=== PATIENT | female | born 1945 | race Caucasian/White ===

== ENCOUNTER 2022-07-05 18:24 | Emergency (ER) | payer OTHER ==
[2022-07-05 18:59] VITALS: BP 179/103; PULSE 96; RESP 18; TEMP 99.2; BMI 17.1
== END 2022-07-05 19:29 | disposition home or self-care (01) ==
LOC: FER 18:24
DX: R05.1 Acute cough (principal); R09.81 Nasal congestion; Z20.822 Contact with and (suspected) exposure to COVID-19
CPT/HCPCS: 0241U-QW; 71046-TC-FY; 99285-25

== ENCOUNTER 2023-02-07 23:53 | Emergency (ER) | payer OTHER ==
[2023-02-08] VITALS: RESP 16; BMI 17.0
[2023-02-08] MEDS ORDERED: ONDANSETRON 4 MG/2 ML VIAL IVPB ONE (00:35)
[2023-02-08] MEDS ORDERED: FOLIC ACID INJECTION - 1 MG, THIAMINE HCL 100 MG, MULTIVIT INJECTION ADULT 10 ML in SOD... IVPB ONE (00:41)
[2023-02-08] MEDS ORDERED: ONDANSETRON 4 MG/2 ML VIAL ONE (00:47)
[2023-02-08] MEDS ORDERED: FOLIC ACID 5 MG/1 ML ONE (00:51)
[2023-02-08] MEDS ORDERED: THIAMINE HCL 200 MG/2 ML VIAL ONE (00:52)
[2023-02-08] MEDS ORDERED: MULTIVIT INJ. ADULT COMBO WITH VIT K 1 COMBO 10 ML VIAL IV ONE (00:52)
[2023-02-08 01:55] LABS: EPI CELLS 6 /uL (0-25.1); HYALINE CASTS 1 /uL (0-3.1); URINE APPEARANCE TURBID; URINE BACTERIA 32 /uL (0-1359); URINE BILIRUBIN NEGATIVE (NEGATIVE); URINE COLOR YELLOW; URINE GLUCOSE (UA) NEGATIVE (NEGATIVE); URINE KETONE 2+ (NEGATIVE); URINE LEUK ESTERASE NEGATIVE (NEGATIVE); URINE NITRITE NEGATIVE (NEGATIVE); URINE PROTEIN 1+ (NEGATIVE); URINE RBC 14 /uL (0-23.9); URINE UROBILINOGEN 0.2 mg/dL (0.2-1.0); URINE WBC 21 /uL (0-25.8)
[2023-02-08 02:04] LABS: BASO % 0.4 % (0-2.0); EOS % 0.3 % (0-4.5); HEMATOCRIT 36.2 % (32.4-45.2); HEMOGLOBIN 11.8 GM/dL (10.7-15.3); LYMPH % 9.9 % (8-40); MCH 26.9 pg (25.7-33.7); MCHC 32.6 g/dl (32.0-36.0); MEAN CELL VOLUME 82.5 fl (80-96); MEAN PLT VOLUME 8.3 fl (7.5-11.1); NEUT % 81.4 % (42.8-82.8); PLATELET COUNT 231 10^3/uL (134-434); RBC 4.39 M/mm3 (3.60-5.2); RDW 13.8 % (11.6-15.6); WHITE BLOOD COUNT 4.8 K/mm3 (4.0-10.0)
[2023-02-08 02:07] LABS: POTASSIUM 3.8 mmol/L (3.5-5.1)
[2023-02-08 02:09] LABS: ALBUMIN 3.6 g/dl (3.4-5.0); CALCIUM 8.3 mg/dL (8.5-10.1)
[2023-02-08 02:10] LABS: BLOOD UREA NITROGEN 15.4 mg/dL (7-18)
[2023-02-08 02:13] LABS: CREATININE 0.8 mg/dL (0.55-1.3)
[2023-02-08 02:14] LABS: BILIRUBIN,TOTAL 0.5 mg/dL (0.2-1); TOT PROT 7.4 g/dl (6.4-8.2)
[2023-02-08] MEDS ORDERED: ACETAMINOPHEN 1000 MG/100 ML BAG IVPB ONE (02:18)
[2023-02-08] MEDS ORDERED: ACETAMINOPHEN INJECTION 100 ML IVPB ONE (02:21)
[2023-02-08 02:39] VITALS: BP 177/97; PULSE 94; TEMP 99.9
[2023-02-08 05:13] LABS: URINE CRYSTALS NONE SEEN /hpf
== END 2023-02-08 03:11 | disposition home or self-care (01) ==
LOC: FER 23:53
PROC: 3E033GC Introduction of Other Therapeutic Substance into Peripheral Vein, Percutaneous Approach (ICD-10-PCS; principal; 2023-02-08)
PROC: 3E033GC Introduction of Other Therapeutic Substance into Peripheral Vein, Percutaneous Approach (ICD-10-PCS; 2023-02-08)
PROC: 3E033GC Introduction of Other Therapeutic Substance into Peripheral Vein, Percutaneous Approach (ICD-10-PCS; 2023-02-08)
PROC: 3E033GC Introduction of Other Therapeutic Substance into Peripheral Vein, Percutaneous Approach (ICD-10-PCS; 2023-02-08)
PROC: 3E033GC Introduction of Other Therapeutic Substance into Peripheral Vein, Percutaneous Approach (ICD-10-PCS; 2023-02-08)
PROC: 3E033GC Introduction of Other Therapeutic Substance into Peripheral Vein, Percutaneous Approach (ICD-10-PCS; 2023-02-08)
PROC: 3E033GC Introduction of Other Therapeutic Substance into Peripheral Vein, Percutaneous Approach (ICD-10-PCS; 2023-02-08)
PROC: 3E033GC Introduction of Other Therapeutic Substance into Peripheral Vein, Percutaneous Approach (ICD-10-PCS; 2023-02-08)
PROC: 3E033GC Introduction of Other Therapeutic Substance into Peripheral Vein, Percutaneous Approach (ICD-10-PCS; 2023-02-08)
PROC: 3E033NZ Introduction of Analgesics, Hypnotics, Sedatives into Peripheral Vein, Percutaneous Approach (ICD-10-PCS; 2023-02-08)
DX: R50.9 Fever, unspecified (principal); R53.81 Other malaise; J11.1 Influenza due to unidentified influenza virus with other respiratory manifestations; Z20.822 Contact with and (suspected) exposure to COVID-19
CPT/HCPCS: 0241U-QW; 36415; 71045-TC-FY; 80053; 81003; 83605; 84436; 84443; 84484; 85025; 87040; 87086; 93005; 99285-25

== ENCOUNTER 2023-05-24 11:28 | Emergency (ER) | payer OTHER, BC ==
[2023-05-24 11:44] VITALS: BP 118/80; PULSE 79; RESP 16; TEMP 97.7; BMI 16.4
[2023-05-24 12:50] LABS: HEMATOCRIT 37.9 % (32.4-45.2); HEMOGLOBIN 12.2 G/dL (10.7-15.3); MCH 27.8 pg (25.7-33.7); MCHC 32.2 g/dl (32.0-36.0); MEAN CELL VOLUME 86.4 fl (80-96); MEAN PLT VOLUME 8.9 fl (7.5-11.1); PLATELET COUNT 274.2 10^3/uL (134-434); RBC 4.39 10^6/uL (3.60-5.2); WHITE BLOOD COUNT 5.6 10^3/uL (4.0-10.8)
[2023-05-24 13:00] LABS: ALBUMIN 5.1 g/dl (3.4-5.0); BILIRUBIN,TOTAL 0.5 mg/dl (0.2-1); CALCIUM 9.7 mg/dl (8.5-10.1); CREATININE 0.9 mg/dl (0.6-1.3); PLATELET ESTIMATE ADEQUATE; POTASSIUM 3.9 mmol/L (3.5-5.1); TOT PROT 7.8 g/dl (6.4-8.2)
== END 2023-05-24 14:30 | disposition home or self-care (01) ==
LOC: FER 11:28
DX: K52.9 Noninfective gastroenteritis and colitis, unspecified (principal)
CPT/HCPCS: 36415; 80053; 81003; 85027; 99283-25